=== PATIENT | female | born 1940 | race Caucasian/White ===

== ENCOUNTER 2017-09-11 21:59 | Emergency (ER) | payer MEDICARE, BC ==
[2017-09-11 22:44] LABS: ALB/GLOB RATIO 1.5 (1.1-1.8); ALBUMIN 3.5 g/dL (4.0-5.0); BILIRUBIN,TOTAL 0.5 mg/dL (0.2-1.0); CREATININE 1.2 mg/dL (0.5-0.9); TOTAL PROTEIN 5.8 g/dL (6.6-8.7)
[2017-09-11 22:45] LABS: ARTERIAL BLOOD GAS pH 6.89 (7.35-7.45)
[2017-09-11 22:46] LABS: ARTERIAL BLD GAS O2 SATURATION 38.3 % (95-98); ARTERIAL BLOOD GAS HCO3 17.4 mmol/L (18-23); ARTERIAL BLOOD GAS PCO2 95.4 mmHg (35-48); O2 HEMOGLOBIN 37.9 % vol (94-99)
[2017-09-11 22:47] LABS: ARTERIAL BLOOD GAS BASE EXCESS -13.9 mmol/L (-2 - 3); CARBOXYHEMOGLOBIN 0.7 % (0-1.5); METHEMOGLOBIN 0.3 % (0.0-1.5)
--- NOTE | 2017-09-11 22:49 | Emergency Department Record ---
History of Present Illness - General Chief Complaint: Code Adult Stated Complaint: UNCONSCIOUS Time Seen by Provider: 09/11/17 22:14 Source: Family, EMS Mode of Arrival: EMS Limitations: Altered mental status - History of Present Illness Initial Comments: pt found face down at bottom of 4 steps outside by daughter when she came home from work. she was apneic and pulseless for unknown length of time. ems called. she was found to be in asystole. she was given epi and went into coarse vfib and was shocked. she was given a total of 4mg of epi. 300 of amioderone and an amp of bicarb. prior to being brought in she was found to be in PEA. she was intubated in the field. MD Complaint: Found unresponsive -: Unknown Place: Home Bystander CPR Performed: No AED Applied by Bystander/Barn And Property Manager: No Initial Findings in the Field: Asystole Associated Symptoms: Shortness of breath Treatments Prior to Arrival: Chest compressions, Defribrillated shocks # (2), Intubation, Amiodarone, Epinephrine mgs # (4), Sodium bicarbonate - Sridhar Coma Scale Eye Response: (1) No response Motor Response: (1) No motor response Verbal Response: (1) No verbal response Sridhar Total: 3 - Related Data Home Medications Medication Instructions Recorded Confirmed Last Taken Bumetanide [Bumex] 1 mg PO BID 09/11/17 09/11/17 Unknown Previous Rx's Medication Instructions Recorded Apixaban [Eliquis] 5 mg PO BID #60 tablet 09/28/16 Hydrocodone/Acetaminophen [Kyburz 1 tab PO Q6H PRN #42 tab 09/28/16 5mg/325mg] Ondansetron [Zofran Odt] 4 mg SL Q8H PRN #15 tab.rapdis 09/28/16 Allergies Allergy/AdvReac Type Severity Reaction Status Date / Time diclofenac sodium Allergy Severe DIFFICULTY Verified 08/28/16 14:26 [From [employer]throte[facility]] BREATHING misoprostol [From Arthrotec] Allergy Severe DIFFICULTY Verified 08/28/16 14:26 BREATHING Sulfa (Sulfonamide Allergy Intermediate PT UNSURE Verified 08/28/16 14:26 Antibiotics) OF REACTION Travel Screening - Travel/Exposure Within Last 30 Days Have you traveled within the last 30 days?: No - Travel/Exposure Within Last Year Have you traveled outside the [place] in the last year?: No - Additonal Travel Details Have you been exposed to anyone with a communicable illness?: No - Travel Symptoms Symptom Screening: None Review of Systems ROS unobtainable: Due to endotracheal tube, Due to mental status Past Medical History - SOCIAL HISTORY Smoking Status: Never smoker Alcohol Use: None Drug Use: None - RESPIRATORY Hx Respiratory Disorders: Yes Hx COPD: Yes Hx Sleep Apnea: Yes Hx of CPAP: No - CARDIOVASCULAR Comment:: due to pain - NEURO Hx Neuro Disorders: No Hx Seizures: No - GI Hx GI Disorders: Yes Hx of Polyps: Yes - Hx Genitourinary Disorders: No Hx Bladder Problem: Yes (leaking urine wears a pad. wears a pessary.) Hx Renal Disease: Yes (50 percent) Comment:: has prolapsed bladder - ENDOCRINE Hx Endocrine Disorders: No - MUSCULOSKELETAL Hx Musculoskeletal Disorders: Yes Hx Arthritis: Yes - PSYCH Hx Psych Problems: Yes Hx Depression: Yes - HEMATOLOGY/ONCOLOGY Hx Hematology/Oncology Disorders: No Hx Bruising: Yes (easy to bruise) Family Medical History Any Significant Family History?: Yes Hx Dementia: Mother Hx HTN: Mother Physical Exam - General General Appearance: Severe distress, Other (cpr in progress) Limitations: Altered mental status - Head Head exam: Atraumatic - Eye Eye exam: Other (pupils fixed and dilated) Pupils: Mydriatic - ENT ENT exam: Normal exam Ear exam: Normal external inspection Nasal Exam: Normal inspection Mouth exam: Normal external inspection - Respiratory Respiratory exam: Other (breath sounds equal w bagging) - Cardiovascular Cardiovascular Exam: Other (no heart sounds) - GI/Abdominal GI/Abdominal exam: Soft - Extremities Extremities exam: Normal inspection - Neurological Neurological exam: Altered - Skin Skin exam: Cyanosis Course - Reevaluation(s) Reevaluation #1: 09/11/17 22:54 pt is in asystole. no response. meds have been maxed out. d/w daughter. pt pronounced at 2210. Medical Decision Making - Lab Data Result diagrams: 09/11/17 22:34 09/11/17 22:34 Critical Care Time Critical Care Time: Yes Total Critical Care Time: 45 Disposition Disposition: Other Clinical Impression: Full code status, Cardiac arrest Disposition: / Quality - Quality Measures Quality Measures: N/A - Blood Pressure Screening Does Patient Have Any of the Following: Active Dx of HTN Systolic Measurement: ~ Screening for High Blood Pressure: Patient Exclusion, Hx of HTN [G9511]
[2017-09-11 22:50] LABS: HEMATOCRIT 44.5 % (35.0-47.0); HEMOGLOBIN 13.7 gm/dl (11.6-16.0); MEAN CELL VOLUME 99.1 fl (81-97); MEAN CORPUSCULAR HEMOGLOBIN 30.5 pg (27-33); MEAN CORPUSCULAR HGB CONC 30.8 g/dl (32-36); MEAN PLATELET VOLUME 9.9 fl (7.4-10.4); PLATELET COUNT 187 K/uL (130-400); RED BLOOD COUNT 4.49 M/uL (3.80-5.40); RED CELL DISTRIBUTION WIDTH 14.2 % (11.5-14.5); WHITE BLOOD COUNT W/O DIFF 7.8 K/uL (4.2-12.2)
== END 2017-09-12 00:46 | disposition expired ==
LOC: ER 21:59
DX: I46.9 Cardiac arrest, cause unspecified (principal); J44.9 Chronic obstructive pulmonary disease, unspecified
CPT/HCPCS: 36600; 80053; 82375; 82803; 84484; 85027; 92950; 99285